=== PATIENT | male | born 1950 | race Native Hawaiian/Other Pacific Islander ===

== ENCOUNTER 2016-09-20 04:36 | Outpatient (CLI) | payer OTHER | END 2016-09-20 04:49 | disposition short-term general hospital (02) | LOC: AMB 04:36 | DX: T36.8X5A Adverse effect of other systemic antibiotics, initial encounter (principal); Y92.89 Other specified places as the place of occurrence of the external cause | CPT/HCPCS: A0425; A0429 ==

== ENCOUNTER 2017-04-29 12:47 | Outpatient (CLI) | payer OTHER ==
[2017-04-29] MEDS ORDERED: PAXIL10 MG PO (13:55)
[2017-04-29] MEDS ORDERED: MACROBID100 MG OR (13:56)
[2017-04-29] MEDS ORDERED: GABA400C2 PO (13:57)
[2017-04-29] MEDS ORDERED: BUSP5TAB2 PO (13:57)
[2017-04-29] MEDS ORDERED: METHADONE10 MG OR (13:59)
[2017-04-29] MEDS ORDERED: BACLOFEN20 MG OR (13:59)
[2017-04-29] MEDS ORDERED: SIMV40TA57 (14:00)
[2017-04-29] MEDS ORDERED: DANTRIUM25 MG OR (14:01)
[2017-04-29] MEDS ORDERED: FURO20TA67 PO (14:01)
== END 2017-04-29 13:02 | disposition short-term general hospital (02) ==
LOC: AMB 12:47
DX: R06.09 Other forms of dyspnea (principal)
CPT/HCPCS: A0425; A0429

== ENCOUNTER 2017-04-29 13:06 | Emergency (ER) | payer OTHER ==
[~2017-04-29] VITALS: Ht 180.3 cm; Wt 55.3 kg
[2017-04-29] MEDS ORDERED: PAXIL10 MG PO (13:55)
[2017-04-29] MEDS ORDERED: MACROBID100 MG OR (13:56)
[2017-04-29] MEDS ORDERED: BUSP5TAB2 PO (13:57)
[2017-04-29] MEDS ORDERED: GABA400C2 PO (13:57)
[2017-04-29] MEDS ORDERED: METHADONE10 MG OR (13:59)
[2017-04-29] MEDS ORDERED: BACLOFEN20 MG OR (13:59)
[2017-04-29] MEDS ORDERED: SIMV40TA57 (14:00)
[2017-04-29] MEDS ORDERED: FURO20TA67 PO (14:01)
[2017-04-29] MEDS ORDERED: DANTRIUM25 MG OR (14:01)
[2017-04-29 14:46] LABS: PLATELET COUNT 406 K/uL (142-355)
[2017-04-29 14:48] LABS: POTASSIUM 4.3 mmol/L (3.6-5.2); SODIUM 141 mmol/L (136-145)
[2017-04-29 16:04] VITALS: BP 110/65; TEMP 97.8
== END 2017-04-29 16:04 | disposition home or self-care (01) ==
LOC: ED 13:06
PROVIDERS: Family Medicine
DX: R07.89 Other chest pain (principal); R06.02 Shortness of breath
CPT/HCPCS: 36415; 80053; 81000; 82550; 82553; 83880; 84484; 85027; 87077; 87088; 93005; 99283

== ENCOUNTER 2017-05-04 15:49 | Outpatient (CLI) | payer OTHER ==
[~2017-05-04 15:49] MED LIST: BACLOFEN20 MG OR; BUSP5TAB2 PO; DANTRIUM25 MG OR; FURO20TA67 PO; GABA400C2 PO; MACROBID100 MG OR; METHADONE10 MG OR; PAXIL10 MG PO; SIMV40TA57
== END 2017-05-04 15:50 | disposition home or self-care (01) ==
LOC: AMB 15:49
DX: L89.109 Pressure ulcer of unspecified part of back, unspecified stage (principal)
CPT/HCPCS: A0425; A0429

== ENCOUNTER 2017-08-15 12:27 | Outpatient (CLI) | payer OTHER | END 2017-08-15 18:57 | disposition home or self-care (01) | LOC: LAB 12:27 | DX: N39.0 Urinary tract infection, site not specified (principal) | CPT/HCPCS: 81000; 87077; 87088 ==